=== PATIENT | female | born 1985 | race Caucasian/White ===

== ENCOUNTER 2016-05-18 20:42 | Inpatient (IN) | payer OTHER ==
[~2016-05-18] VITALS: Ht 167.6 cm; Wt 138.8 kg
[~2016-05-18 20:42] MED LIST: BLM PO; CHANTIX1 MG PO; CHILDREN'S ASPI81 M1; CYCLOBENZAPRINE10 M1 PO; FLEXERIL10 MG PO; FLUTICASONE PRO16 GM; IBUPROFEN800 M1 PO; LANTUS SOLOS100 U/ML SC; LEVAQUIN500 MG PO; LEVEMIR 10100 UNITS/ SC; LEVEMIR100 UNIT/1 SC; LEVOTHYROXIN0.075 M1 PO; LEVOTHYROXINE125 MCG PO; MEDROL DOSEPAK1 PAC PO; MOTRIN 600 MG600 MG PO; MOTRIN600 MG PO; NOVOLOG 10300 UNITS/; NOVOLOG100 U/ML SC; NOVOLOG100 UNIT/2 SC; PREDNISONE10 MG PO; TOPROL XL25 MG PO; TYLENOL #31 TAB PO; VENTOLIN HFA18 GM INH; ZITHROMAX250 M2 PO
--- NOTE | 2016-05-18 20:45 | NUR ---
PER PT EVERYONE IN HOUSE SICK STARTED WITH NAUSEA, VOMITING AND DIARRHEA 129 IDDM SUGARS RUNNING HIGH, PT HAS INSULIN PUMP
--- NOTE | 2016-05-18 21:06 | NUR ---
APPRECIATE TRIAGE NOTE. PT TO ROOM 8 VIA WHEELCHAIR. PA ENRIQUETA TO BEDSIDE FOR EVAL.
--- NOTE | 2016-05-18 21:11 | ED GI/GU/ABDOMINAL COMPLAINT ---
History of Present Illness General Chief Complaint: Nausea, Vomiting, Diarrhea Stated Complaint: NVD/ ?HIGH BLOOD SUGAR Source: patient Exam Limitations: no limitations Vital Signs & Intake/Output Vital Signs & Intake/Output Vital Signs Date Time Temp Pulse Resp B/P Pulse O2 O2 Flow FiO2 Ox Delivery Rate 05/19 0217 99.5 107 20 117/53 96 Room Air 05/19 0019 98.8 118 18 112/61 98 Room Air 05/18 204 98.3 103 22 144/79 98 Triage Note: PER PT EVERYONE IN HOUSE SICK STARTED WITH NAUSEA, VOMITING AND DIARRHEA 0130 IDDM SUGARS RUNNING HIGH, PT HAS INSULIN PUMP Triage Nurses Notes Reviewed? yes ? n Is pt currently ? No Onset: Abrupt Duration: hour(s): (1 AM this morning) Timing: multiple episodes today Quality/Severity: cramping, moderate, severe Location: generalized abdomen No Modifying Factors: none HPI: 31-year-old female comes into emergency room with sudden onset nausea vomiting and diarrhea has been going on since 1 AM this morning. Patient reports that she has had multiple episodes of each. Patient feels that she has chills and body aches. People in her house have been sick with similar symptoms. Patient is a type I diabetic and her sugar was 392 at home she reports. Denies any other associated symptoms. Patient has not been able to keep any liquids down. (RICARDO ALEXIS) Allergies Coded Allergies: clopidogrel (From PLAVIX) (Mild, RASH 03/07/16) Penicillins (FAMILIAL ALLERGY HX 03/07/16) atorvastatin (From LIPITOR) (Intermediate, UNKNOWN 05/19/16) muscle pain Uncoded Allergies: MOUTHWASH (Severe, TONGUE SWELLING - AIM MOUTHWASH 03/07/16) Reconcile Medications Aspirin (Children's Aspirin) 81 MG TAB.CHEW 1 TAB PO DAILY HEART HEALTH ( Reported) Ibuprofen 800 MG TABLET 1 TAB PO TID PRN PAIN Insulin Aspart (Novolog) 100 UNIT/ML VIAL DM (Reported) Levothyroxine Sodium 125 MCG TABLET 125 MCG PO DAILY AC THYROID (Reported) Rosuvastatin Calcium (Crestor) 40 MG TABLET 1 TAB PO DAILY HYPERLIPIDEMIA ( Reported) (XENA YUSUF,LACHO Davidson) Past History Travel History Traveled to [place] past 21 day No Medical History Any Pertinent Medical History? 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 No (RICARDO ALEXIS) Review of Systems Review of Systems Constitutional: Reports: no symptoms. EENTM: Reports: no symptoms. Respiratory: Reports: no symptoms. Cardiovascular: Reports: no symptoms. GI: Reports: see HPI. Genitourinary: Reports: no symptoms. Musculoskeletal: Reports: no symptoms. Skin: Reports: no symptoms. Neurological/Psychological: Reports: no symptoms. Hematologic/Endocrine: Reports: no symptoms. Immunologic/Allergic: Reports: no symptoms. All Other Systems: Reviewed and Negative (RICARDO ALEXIS) Physical Exam Physical Exam General Appearance: well developed/nourished, no apparent distress, alert Head: atraumatic, normal appearance Eyes: Bilateral: normal appearance, EOMI. Ears, Nose, Throat, Mouth: hearing grossly normal, moist mucous membrane Neck: normal inspection Respiratory: normal breath sounds, no respiratory distress Cardiovascular: regular rate/rhythm, tachycardia Gastrointestinal: soft, non-tender Back: normal inspection Extremities: normal range of motion Neurologic/Psych: awake, alert, oriented x 3 Skin: intact, normal color Core Measures ACS in differential dx? No Severe Sepsis Present: No Septic Shock Present: No (RICARDO ALEXIS) Progress Differential Diagnosis: appendicitis, biliary colic, bowel obstruction, diverticulitis, kidney stone, ovarian cyst, ovarian torsion, pancreatitis, threatened AB, UTI/pyelo, DKA, gastroenteritis, Plan of Care: Orders Procedure Date/time Status Nothing by Mouth 05/19 B Active TROPONIN LEVEL 05/19 06 Active CBC WITHOUT DIFFERENTIAL 05/19 06 Active BASIC ELECTROLYTES PLUS BUN&CR 05/19 06 Active EKG 05/19 06 Active BASIC METABOLIC PANEL 05/19 0230 Active Add-on Test (ER Only) 05/19 0208 Active Add-on Test (ER Only) 05/19 0207 Active Pathway - chart 05/19 0107 Active House Staff 05/19 106 Active Code Status 05/19 106 Active Patient Data 05/19 004 Active Admit to inpatient 05/19 40 Active EKG 05/20 15 Active Add-on Test (ER Only) 05/19 001 Active VTE Mechanical Prophylaxis 05/19 UNK Active URINE DRUGS OF ABUSE 05/19 2307 Complete Intake & Output 05/18 2302 Active TROPONIN LEVEL 05/19 2147 Complete MAGNESIUM 05/19 2147 Complete URINE 05/18 2109 Complete URINALYSIS 05/18 2109 Complete LIPASE 05/18 2109 Complete LACTIC ACID 05/18 2109 Complete COMPREHENSIVE METABOLIC PANEL 05/18 2109 Complete CBC WITHOUT DIFFERENTIAL 05/18 2109 Complete AMYLASE 05/18 2109 Complete ACETONE 05/18 2109 Complete FingerStick- Glucose 05/18 2046 Active Current Medications Sig/Lauro Start time Last Medication Dose Stop Time Status Admin Aspirin 81 MG DAILY 05/19 1000 AC (Aspirin) Enoxaparin Sodium 40 MG DAILY 05/19 1000 AC (Lovenox) Rosuvastatin Calcium 10 MG DAILY 05/19 1000 AC (Crestor) Levothyroxine Sodium 0.125 MG DAILY AC 05/19 0700 AC (Synthroid) Ondansetron HCl 4 MG Q6P PRN 05/19 0200 AC (Zofran) Acetaminophen 650 MG Q6P PRN 05/19 0115 AC (Tylenol) Insulin Human Regular 100 UNIT Q24H 05/19 0100 AC (Novolin R (Insulin Drip)) Sodium Chloride 100 ML (Normal Saline 0.9%) Laboratory Tests 05/19/16 0235: Sodium Pending, Potassium Pending, Chloride Pending, Carbon Dioxide Pending, Anion Gap Pending, BUN Pending, Creatinine Pending, BUN/Creatinine Ratio Pending , Glucose Pending, Calcium Pending 05/19/16 0010: Lactic Acid Cancelled 05/18/16 2330: CBC w Diff NO MAN DIFF REQ, RBC 4.64, MCV 90.4, MCH 30.9, RDW 15.5 H, MPV 10.6 H, Gran % 88.6 H, Lymphocytes % 8.9 L, Monocytes % 2.1, Eosinophils % 0.3, Basophils % 0.1, Absolute Granulocytes 10.7 H, Absolute Lymphocytes 1.1 L, Absolute Monocytes 0.3, Absolute Eosinophils 0, Absolute Basophils 0, PUBS MCHC 34.1 05/18/16 2308: Urine Opiates Screen < 100.00, Methadone Screen < 40, Barbiturate Screen < 60, Ur Phencyclidine Scrn < 6.00, Amphetamines Screen < 100, U Benzodiazepines Scrn < 85, Urine Cocaine Screen < 50, Urine Cannabis Screen < 5.00, Urine Color YEL, Urine Clarity CLEAR, Urine pH 6.0, Ur Specific [place] 1.025, Urine Protein NEG, Urine Ketones >=80, Urine Nitrite NEG, Urine Bilirubin NEG@ICTO, Urine Urobilinogen 0.2, Ur Leukocyte Esterase NEG, Ur Microscopic EXAM NOT REQUIRED, Urine Hemoglobin NEG, Urine Glucose >=1000 H, Urine Test NEGATIVE 05/18/168: Anion Gap 19 H, Estimated GFR > 60, BUN/Creatinine Ratio 21.1, Glucose 377 H, Lactic Acid 1.2, Calcium 8.5, Magnesium 1.3 L, Total Bilirubin 0.8, AST 17, ALT 29, Alkaline Phosphatase 93, Troponin I < 0.01, Total Protein 6.5, Albumin 3.6, Globulin 2.9, Albumin/Globulin Ratio 1.2, Amylase < 30 L, Lipase 18 L, Acetone Level POSITIVE AT 1:16 DIL Initial ED EKG: none (RICARDO ALEXIS) Departure Departure Disposition: STILL A PATIENT Condition: Stable Clinical Impression Primary Impression: Diabetic ketoacidosis Secondary Impressions: Gastroenteritis Referrals: MADDIE ELAM MD (PCP/Family) Departure Forms: Customer Survey General Discharge Information Admission Note Spoke With: FRANCHESCA MACK MD Documentation of Exam: Documentation of any treatments & extenuating circumstances including Concerns Regarding Discharge (functional status, medication knowledge or non-compliance, living conditions, etc.) that warrant an admission rather than observation: Patient will require IV fluids. IV insulin. Endocrine consultation. Critical care management. Repeat blood work. High risk. Patient has declined ABG and any type of central line access at this point. (RICARDO ALEXIS) PA/PELTS SKINNER Co-Sign Statement Statement: ED Attending supervision documentation- [x] I saw and evaluated the patient. I have also reviewed all the pertinent lab results and diagnostic results. I agree with the findings and the plan of care as documented in the PA's/PELTS SKINNER's documentation. pt signed out to me... discussed with hospitalist... pt with mild dka, merits insulin gtt, pt to be admitted to icu. [] I have reviewed the ED Record and agree with the PA's/PELTS SKINNER's documentation. [] Additions or exceptions (if any) to the PAs/PELTS SKINNER's note and plan are summarized below: [] (XENA YUSUF,LACHO Davidson) Critical Care Note Critical Care Note Critical Care Time: 30-74 min (ENRIQUETA RASHID,RICARDO)
--- NOTE | 2016-05-18 22:51 | NUR ---
MULTIPLE ATTEMPTS BY MULTIPLE RN'S FOR IV ACCESS. ONE SST TUBE SENT. GAY ROBISON AND DR. HARDY UPDATED ON PT STATUS.
--- NOTE | 2016-05-18 23:02 | NUR ---
PT MEDICATED WITH ODT ZOFRAN AT THIS TIME PER GAY ROBISON. PT AMBULATORY TO BATHROOM TO PROVIDE URINE SPECIMEN WITH NO DIFFICULTY. PT PROVIDED WITH TWO WATER PITCHERS TO HYDRATE PO AT THIS TIME.
[2016-05-18 23:37] LABS: ABSOLUTE BASOPHIL COUNT 0 /CUMM (0.0-0.2); ABSOLUTE EOSINOPHIL COUNT 0 /CUMM (0.0-0.7); ABSOLUTE GRANULOCYTE CT 10.7 /CUMM (1.4-6.5); ABSOLUTE LYMPH COUNT 1.1 /CUMM (1.2-3.4); ABSOLUTE MONOCYTE COUNT 0.3 /CUMM (0.10-0.60); BASOPHIL % 0.1 % (0.0-2.0); EOSINOPHIL % 0.3 % (0-5); HEMATOCRIT 41.9 % (37-47); MEAN CORPUSCULAR HGB 30.9 PG (27.0-31.0); MEAN CORPUSCULAR HGB CONC 34.1 G/DL (33.0-37.0); MEAN CORPUSCULAR VOLUME 90.4 FL (81.0-99.0); MEAN PLATELET VOLUME 10.6 FL (7.4-10.4); PLATELET COUNT 221 /CUMM (130-400); RBC DISTRIBUTION WIDTH 15.5 % (11.5-14.5); RED BLOOD CELL CT 4.64 /CUMM (4.20-5.40); WHITE BLOOD CELL COUNT 12.1 /CUMM (4.8-10.8)
--- NOTE | 2016-05-18 23:40 | NUR ---
IV EST BY THIS RN #24 LEFT WRIST. LACTIC AND LAV TOPS OBTAINED AND SENT TO LAB.
--- NOTE | 2016-05-18 23:40 | NUR ---
IV EST #24 LEFT WRIST. LACTIC AND LAV TOPS OBTAINED AND SENT TO LAB.
[2016-05-18 23:50] LABS: GRANULOCYTE % 88.6 % (42.2-75.2)
--- NOTE | 2016-05-18 23:53 | NUR ---
CURRENT FINGERSTICK 295. RICARDO RASHID AWARE.
--- NOTE | 2016-05-19 00:12 | NUR ---
PATIENT DECLINING ABG PER GAY SILVA DESPITE THOROUGH DISCUSSION OF RISKS/ BENEFITS.
--- NOTE | 2016-05-19 00:20 | NUR ---
WEIGHT ON STANDING SCALE IS 306LBS.
--- NOTE | 2016-05-19 00:28 | NUR ---
HOUSE STAFF AT BEDSIDE FOR EVAL.
--- NOTE | 2016-05-19 00:36 | NUR ---
EKG IN PROGRESS.
--- NOTE | 2016-05-19 00:50 | NUR ---
PATIENT'S INSULIN PUMP DISCONNECTED AT THIS TIME AND PLACED W/ PATIENT'S BELONGINGS. PATIENT AWARE TO KEEP INSULIN PUMP OFF AND DISCONNECTED WHILE IN HOSPITAL.
[2016-05-19] MEDS ORDERED: CRESTOR40 M2 PO (01:23)
--- NOTE | 2016-05-19 01:35 | NUR ---
PER HOUSE STAFF JUVENCIO (BEEPER 203) THE MD STOPPED HER POTASSIUM D/T PATIENT DISCOMFORT, PER MD "DON'T NEED TO RESTART IT BECAUSE SHE RECIEVED PO POTASSIUM TOO."
--- NOTE | 2016-05-19 02:00 | NUR ---
NS FIRST LITER COMPLETE. SECOND LITER NS INITIATED AT THIS TIME, INFUSING W/O DIFFICULTY.
--- NOTE | 2016-05-19 02:23 | NUR ---
FINGERSTICK GLUCOSE LEVEL READING 109
--- NOTE | 2016-05-19 02:30 | History & Physical ---
LOBO ALVAREZ MD 05/19/16 0147: General Information and HPI MD Statement: I have seen and personally examined JAZMYN EDWARDS and documented this H&P. The patient is a 31 year old F who presented with a patient stated chief complaint of nausea, vomiting, diarrhea. Source of Information: patient, family, old records Exam Limitations: no limitations History of Present Illness: 31 year old woman with significant past medical history of IDDM on insulin pump, Myocardial Infarction (2011) s/p stent (type unknown), and hypothyroidism seen for evaluation of nausea, vomiting diarrhea. Patient reports that all of the members of her household have been ill with similar gastrointestinal symptoms. She admits to having diarrhea for roughly two weeks characterized as loose, brown, nonbloody bowel movements 7+ times per day. Over the past 24 hours she reports associated nausea with nonbloody, bilious vomitting. Additionally she admits to decreased oral intake, chills, dizzyness, palpitations, shortness of breath, and worsening numbness/tingling of her hands. Additionally she denies any blurred/double vision, lightheadedness, chest pain, cough, urinary frequency/urgency/burning/pain. Allergies/Medications Allergies: Coded Allergies: clopidogrel (From PLAVIX) (Mild, RASH 03/07/16) Penicillins (FAMILIAL ALLERGY HX 03/07/16) atorvastatin (From LIPITOR) (Intermediate, UNKNOWN 05/19/16) muscle pain Uncoded Allergies: MOUTHWASH (Severe, TONGUE SWELLING - AIM MOUTHWASH 03/07/16) Home Med list Aspirin (Children's Aspirin) 81 MG TAB.CHEW ANTI PLATELET (Reported) Ibuprofen 800 MG TABLET 1 TAB PO TID PRN PAIN Insulin Aspart (Novolog) 100 UNIT/ML VIAL DM (Reported) Levothyroxine Sodium 125 MCG TABLET 125 MCG PO DAILY AC THYROID (Reported) Rosuvastatin Calcium (Crestor) 40 MG TABLET 1 TAB PO DAILY HYPERLIPIDEMIA ( Reported) Past History Travel History Traveled to [place] past 21 day No Medical History Neurological: NONE EENT: NONE Cardiovascular: myocardial infarction (w/ stent), STENT PLACED MAR 2011 Respiratory: NONE Gastrointestinal: NONE Hepatic: NONE Renal: NONE Musculoskeletal: NONE Psychiatric: NONE Endocrine: diabetes, hypothyroidism Blood Disorders: NONE Cancer(s): 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 Home Who Do You Live With? spouse, child Primary Language: Syriac Smoking Status: Former Smoker ETOH Use: occasional use Illicit Drug Use: denies illicit drug use Review of Systems Review of Systems Constitutional: Reports: see HPI. Exam & Diagnostic Data Last 24 Hrs of Vital Signs/I&O Vital Signs Date Time Temp Pulse Resp B/P Pulse O2 O2 Flow FiO2 Ox Delivery Rate 05/19 001 98.8 118 18 112/61 98 Room Air 05/18 2045 98.3 103 22 144/79 98 Intake & Output 05/19 0800 05/19 0000 05/18 1600 Intake Total Output Total Balance Patient 138.799 kg Weight Physical Exam General Appearance Alert, Oriented X3, Cooperative, No Acute Distress Skin No Rashes, No Breakdown, No Significant Lesion HEENT Atraumatic, PERRLA, EOMI, Mucous Membr. moist/pink Neck Supple Cardiovascular Regular Rate, Normal S1, Normal S2, No Murmurs Lungs Clear to Auscultation, Normal Air Movement Abdomen Normal Bowel Sounds, Soft, No Hepatospenomegaly, No Masses, Mild diffuse abdominal tenderness Neurological Normal Speech, Normal Tone, Cranial Nerves 3-12 NL Extremities No Clubbing, No Cyanosis, Normal Pulses, No Tenderness/Swelling, 1+ bilateral lower extremity edema Vascular Normal Pulses, Pulses Symmetrical Last 24 Hrs of Labs/Bryan: Laboratory Tests 05/19/16 0010: Lactic Acid Cancelled 05/18/16 2330: CBC w Diff NO MAN DIFF REQ, RBC 4.64, MCV 90.4, MCH 30.9, RDW 15.5 H, MPV 10.6 H, Gran % 88.6 H, Lymphocytes % 8.9 L, Monocytes % 2.1, Eosinophils % 0.3, Basophils % 0.1, Absolute Granulocytes 10.7 H, Absolute Lymphocytes 1.1 L, Absolute Monocytes 0.3, Absolute Eosinophils 0, Absolute Basophils 0, PUBS MCHC 34.1 05/18/16 2308: Urine Color YEL, Urine Clarity CLEAR, Urine pH 6.0, Ur Specific [place] 1.025, Urine Protein NEG, Urine Ketones >=80, Urine Nitrite NEG, Urine Bilirubin NEG@ ICTO, Urine Urobilinogen 0.2, Ur Leukocyte Esterase NEG, Ur Microscopic EXAM NOT REQUIRED, Urine Hemoglobin NEG, Urine Glucose >=1000 H, Urine Test NEGATIVE 05/18/168: Anion Gap 19 H, Estimated GFR > 60, BUN/Creatinine Ratio 21.1, Glucose 377 H, Lactic Acid 1.2, Calcium 8.5, Magnesium 1.3 L, Total Bilirubin 0.8, AST 17, ALT 29, Alkaline Phosphatase 93, Total Protein 6.5, Albumin 3.6, Globulin 2.9, Albumin/Globulin Ratio 1.2, Amylase < 30 L, Lipase 18 L, Acetone Level POSITIVE AT 1:16 DIL Diagnostic Data EKG Results Sinus Tachycardia HR 118 MN 152 QTc 432 New T-Wave inversion V1-V6 + III No ST segment changes Assessment/Plan Assessment: 31 year old woman with multiple medical problems significant for insulin dependent diabetes mellitus and myocardial infarction seen for evaluation of nausea, vomiting, and diarrhea. Given patients reported history of multiple family members having similar gastrointestinal complaints and negative history for any recent travel, consumption of undercooked meat, or recent antibiotic use it is likely patient is suffering from an acute viral gastroenteritis. Patient objectively also qualifies for diabetic ketoacidosis most likely secondary to her acute viral illness with her decreased oral intake, dehydration, elevated blood sugar, low bicarbonate, and positive acetone. Patient declining ABG at this time. Patient will be admitted to the intensive care unit for further evaluation. Diabetic Ketoacidosis / IDDM on Insulin Pump Extensive history of insulin dependent diabetes mellitus. Uses insulin pump at home and reports compliance. Patient of Dr. Chiu (data conversion operator) of [place]. Most likely secondary to her acute viral illness. Patient received 1 liter normal saline and 10 units regular insulin in ED. -ICU admission -BEP Q4H -Fingersticks Q1H -D5 Normal Saline with KCL -F/U BEP, assess for closer of anion gap and normalization of potassium / bicarbonate, place endocrine consult if these results are still abnormal Viral Gastroenteritis -Intravenous Fluid rehydration -Zofran 4mg IV Q6H PRN - Nausea History of Myocardial Infarction s/p Stent Patient of Dr. Coe. Reportedly had ME in 2011 resulting in placement of a reported bare-metal stent. Reported allergy to plavix and lipitor. EKG demonstrated new t-wave inversions in precordial leads on admission. -Aspirin 81mg PO Daily -Crestor 40mg PO Daily -Trend Troponin/EKG Hypothyroidism - levothyroxine 125mg PO Daily Diet - NPO, advance to clears as tolerated DVT PPx - heparin Code Status - Full Code As Ranked By This Provider Problem List: 1. Diabetic ketoacidosis 2. Gastroenteritis Core Measures/Miscellaneous Acute Coronary Syndrome ACS Diagnosis: No Cerebrovascular Accident CVA/TIA Diagnosis: No Congestive Heart Failure CHF Diagnosis: No Venous Thromboembolism VTE Risk Factors: Acute medical illness, Obesity VTE Prophylaxis Ordered Inpt: Pharm- Heparin No Mech VTE prophylaxis d/t: No contraindications No VTE Pharm Prophylaxis d/t: No contraindications VTE Diagnosis: No VTE Type: NONE VTE Confirmed by (Test): NONE Severe Sepsis Severe Sepsis Present: No Septic Shock Septic Shock Present: No Miscellaneous Documentation Attending Case Discussed With: FRANCHESCA MACK MD Primary Care Physician: MADDIE ELAM MD Patient sees these Specialists Dr. Saravanan Chiu Level of Patient Care: Critical Care (CRI) Consults Needed: Consulting Specialty: Endocrinology JUVENCIO FRANCO 05/19/16 0242: Resident Review Statement Resident Statement: examined this patient, discussed with consultant intern, amended to note Other Findings: 31-year-old lady with past medical history of ME in 2011 with bare metal stent on aspirin 81 mg, diabetes type 1 on insulin pump since 1-1/2 months ago, hypothyroidism on levothyroxine came with chief complaint of nausea and vomiting , diarrhea and weakness. Patient reported having nonbloody, watery, brown diarrhea for at least 10 days, associated with on and off chills. However patient reported having nausea and multiple episodes of nonbloody vomiting for 24 hours with shortness of breath on exertion, generalized weakness which prompted her to come to the hospital. Patient reports her kids, her mother and her had episode of gastroenteritis recently, denies any chest pain, headache, urinary symptoms, tenesmus. Patient does report of chronic back pain, carpal tunnel syndromes and tingling and numbness on the hands. Patient has started using insulin pump for about 6 X. According to the patient her blood sugar levels were within normal limits except today which were very high. Vital signs on admission temperature 98.8, pulse is 118, RR 18, O2 saturation 98 % on room air Alert and oriented 3 Skin No Rashes, No Breakdown, No Significant Lesion HEENT Atraumatic, PERRLA, EOMI Neck Supple, No JVD, No thryomegaly Lymphatic Cervical nl Cardiovascular tachycardic, Normal S1, Normal S2 Lungs Clear to Auscultation, Normal Air Movement Abdomen Normal Bowel Sounds, Soft, mild generalizedTenderness, No Hepatospenomegaly, No Masses Neurological Normal Gait, Normal Speech, Strength at 5/5 X4 Ext, Sensation Intact Extremities No Clubbing, No Cyanosis, Potassium 3.3, sodium 137, glucose 377, BUN 19, AG 19,HCO3 13 Urine is positive for ketones EKG showed sinus tachycardia, 118, QTC 433, T-segment depression in V3, V4, V5, V6 comparing to previous EKG Assessment and plan #Mild DKA(due to gastroenteritist ) -Patien received 1 L bolus and was signing the ED. Continue with 3 L of post # in the ED -Patient received 10 units of Regular Insulin in the ED, We will check blood sugars hourly -BEP every 4 hours until the anion gap closed and HCO3 is more than 19 -we can put the patinet on D5 half when glucose is less than 250 -Repeat K orally and intravenously -admit to ICU -Patient previous regimen was 14 units of Levemir in the morning and 26 units of levmir at night with NovoLog for meals -Early Childhood Coordinator consult (for morning) -Zofran for nausea #EKG changes/ Hx of ME with stents -Troponin and EKG 2 -No need for echocardiogram for now -continue aspirin,statin (crestor 40 mg) #Hypothyroidisim -Continue levothyroxine Full code, Tylenol for pain, NPO DVT prophylaxis is mechanical and Lovenox for now, FRANCHESCA MACK 05/19/16 0604: Attending MD Review Statement Attending Statement Attending MD Statement: examined this patient, discuss w/resident/PA/GYNAECOLOGICAL ONCOLOGIST, agreed w/resident/PA/GYNAECOLOGICAL ONCOLOGIST, discussed with family, reviewed EMR data (avail), reviewed images, amended to note Attending Assessment/Plan: CC: Diarrhea, vomiting PMH: Type 1 diabetes, hypothyroidism, ME 2011 S/P stent Patient came with recurrent vomiting this today, said 20 times, bilious intermittently, no blood. Not associated with severe abdominal pain. She also has diarrhea going on since a week or so, many times, watery, nonbloody. Patient 's whole family is going through similar symptoms, they have been eating out more lately according to her . Her children also go to daycare, and they started to have the symptoms first. She has some soreness on her abdomen after persistent vomiting. No chest pain, tachycardia, palpitations, LOC, dizziness. She was recently started on insulin pump one month back, and sugar control have been better, HbA1c improving according to her. Before insulin pump patient was using almost 70 units of long-acting insulin along with sliding scale short- acting. Vitals: T max 99.6, tachycardic, RR, BP, O2 saturation within acceptable range. On examination obese, a O 3, anxious, no acute distress, mucosa dry, neck supple, no lymphadenopathy, no focal neurological deficit, no pedal edema, no JVD CVS: S1-S2, RRR. RS: Clear to auscultate bilaterally. Abdomen: Soft, NT ND, bowel sounds present. Labs: WBC 12.1, granulocytes 88%, on an 19 with metabolic acidosis. A and P #1 DKA : Precipitated by gastroenteritis, probably viral in origin with reactive leukocytosis, no fever. I was called admission for ICU. The last lab was over 2 hours prior to call, patient had received normal saline 1 L and 10 unit regular IV insulin, her blood sugars were dropping to 200s. Insulin drip was not started in ER. The second problem was she had only one IV line and difficult stick according to ER nurses. So repeat labs were ordered at 2 AM, to reevaluate, which were done at 5 AM (because of difficult prick , hemolysis , patient refused) and gap was 10, even without insulin drip. Patient on insulin pump, suggested 10 unit Levemir and sliding scale insulin, clear liquid diet, repeat BMP in 4 hour. As of now her blood sugar was 132, but gradually creeping up to 170. She is on hourly finger sticks. She will be downgraded to general med now, and will be started on basal and bolus insulin, insulin pump is off, patient did not have any vomiting this in ER, still little dehydrated, continue normal saline maintenance. Consult endocrinology. She has T-wave inversions in lateral leads, but troponin negative so far, no chest pain.
--- NOTE | 2016-05-19 02:36 | NUR ---
VERY SMALL AMOUNT OBTAINED IN SST FOR REPEAT LABS. PATIENT CONTINUES TO REFUSE ANY ADDITIONAL STICKS FOR BLOODWORK/ SECOND IV. HOUSE STAFF AWARE. HOUSE STAFF (BEEPER 203) AWARE OF PATIENT FINGERSTICK OF 109 (INSULIN DRIP WAS NEVER INITIATED).
--- NOTE | 2016-05-19 03:01 | NUR ---
BLOODWORK HEMOLYZED AND NEEDS TO BE REDRAWN.
--- NOTE | 2016-05-19 03:41 | NUR ---
PHARMACY AWARE OF MAG OX ORDER.
--- NOTE | 2016-05-19 03:46 | NUR ---
FINGERSTICK GLUCOSE LEVEL READING 132
--- NOTE | 2016-05-19 04:10 | NUR ---
AT BEDSIDE (BEEPER 203) DISCUSSING BLOODWORK/ IV, PATIENT INITIALLY REFUSING ANY ADDITIONAL IV/BLOODDRAWS. 0235 LABS OBTAINED AND HEMOLYZED, REQUIRE REDRAW. DISCUSSING W/ PATIENT. PATIENT NOW AGREEABLE TO ATTEMPTS TO SECOND IV/ BLOODWORK, REQUESTING ALL LABS BE DONE FROM IV.
--- NOTE | 2016-05-19 04:39 | NUR ---
SMALL AMOUNT OBTAINED AND SENT TO LAB IN [facility].
--- NOTE | 2016-05-19 04:44 | NUR ---
IV EST #22 RIGHT HAND BY FREDERIC BENDER.
[2016-05-19 05:08] LABS: ABSOLUTE BASOPHIL COUNT 0 /CUMM (0.0-0.2); ABSOLUTE EOSINOPHIL COUNT 0 /CUMM (0.0-0.7); ABSOLUTE LYMPH COUNT 1.4 /CUMM (1.2-3.4)
[2016-05-19 05:12] LABS: ABSOLUTE GRANULOCYTE CT 7.3 /CUMM (1.4-6.5); ABSOLUTE MONOCYTE COUNT 0.5 /CUMM (0.10-0.60); BASOPHIL % 0.1 % (0.0-2.0); EOSINOPHIL % 0.1 % (0-5); GRANULOCYTE % 79.6 % (42.2-75.2); HEMATOCRIT 38.4 % (37-47); MEAN CORPUSCULAR HGB 30.8 PG (27.0-31.0); MEAN CORPUSCULAR HGB CONC 33.8 G/DL (33.0-37.0); RBC DISTRIBUTION WIDTH 15.3 % (11.5-14.5); RED BLOOD CELL CT 4.22 /CUMM (4.20-5.40); WHITE BLOOD CELL COUNT 9.1 /CUMM (4.8-10.8)
--- NOTE | 2016-05-19 05:53 | NUR ---
PER HOUSE STAFF (BEEPER 203) PATIENT DOWNGRADED TO GM FROM ICU D/T GAP CLOSED IN AM BLOODWORK RESULTS.
--- NOTE | 2016-05-19 06:05 | Admission Certification ---
Admission Certification Certification Statement - As attending physician, I certify that at the time of - admission, based on clinical presentation, severity of - symptoms, need for further diagnostic testing and - therapeutic interventions, and risk of adverse outcomes - without in-hospital treatment, in my clinical assessment, - this patient requires an acute hospital stay for a minimum - of two nights or longer. I have also considered psychsocial - factors such as support system, advanced age, financial - issues, cognitive issues, and failed out-patient treatments, - past re-admission history, safety of patient, and lack of - compliance as applicable. Specific rationale supporting this admission is: DKA with gastroenteritis
--- NOTE | 2016-05-19 06:06 | NUR ---
PHARMACY AWARE OF MED ORDERS.
--- NOTE | 2016-05-19 06:20 | NUR ---
CURRENT FINGERSTICK 288. MEDICATED W/ SYNTHROID PER EMAR. TOLERATED WELL.
--- NOTE | 2016-05-19 06:29 | NUR ---
PATIENT MEDICATED W/ 15 UNITS LEVEMIR PER EMAR. TOLERATED WELL.
--- NOTE | 2016-05-19 06:47 | NUR ---
PATIENT MEDICATED W/ MAG OX PER EMAR. TOLERATED WELL. CONFIRMED FREQUENCY W/ PHARMACY.
--- NOTE | 2016-05-19 06:55 | PN- Housestaff ---
Subjective Follow-up For: nausea and vomiting elevated BS, DKA Subjective: I saw and examined the patient in the ED today in the morning, she is alert and oriented in no distress, denies any N/V, abdominal pain, dizziness or headache. Review of Systems Constitutional: Denies: chills, fever. EENTM: Reports: no symptoms. Cardiovascular: Denies: chest pain, palpitations. Respiratory: Denies: cough, short of breath. Gastrointestinal: Denies: abdominal pain, nausea, vomiting. Genitourinary: Reports: no symptoms. Musculoskeletal: Reports: no symptoms. Skin: Reports: no symptoms. Neurological/Psychological: Denies: headache, weakness. Hematologic/Endocrine: Reports: polyuria, polydipsia. Objective Last 24 Hrs of Vital Signs/I&O Vital Signs Date Time Temp Pulse Resp B/P Pulse O2 O2 Flow FiO2 Ox Delivery Rate 05/19 0950 97.8 105 18 116/55 98 05/19 0439 99.1 118 18 95 Room Air 05/19 0344 99.6 115 20 103/52 93 Room Air 05/19 0217 99.5 107 20 117/53 96 Room Air 05/19 0019 98.8 118 18 112/61 98 Room Air 05/18 2046 98.3 103 22 144/79 98 Intake & Output 05/19 1600 05/19 0800 05/19 0000 Intake Total 1000 Output Total Balance 1000 Intake, IV 1000 Patient 138.799 kg Weight Physical Exam General Appearance: Alert, Oriented X3, Cooperative, No Acute Distress Skin: No Rashes, No Breakdown, No Significant Lesion HEENT: Atraumatic, EOMI Neck: Supple Cardiovascular: Regular Rate, Normal S1, Normal S2, No Murmurs Lungs: Clear to Auscultation, Normal Air Movement Abdomen: Soft, No Tenderness Neurological: Normal Speech, Strength at 5/5 X4 Ext, Normal Tone, Sensation Intact Extremities: No Edema, Normal Pulses Vascular: Pulses Symmetrical Current Medications: Current Medications Sig/Lauro Start time Last Medication Dose Route Stop Time Status Admin Acetaminophen 650 MG Q6P PRN 05/19 0115 AC PO Aspirin 81 MG DAILY 05/19 1000 AC PO Dextrose/Sodium 1,000 ML Q8H 05/19 0415 DC Chloride IV Enoxaparin Sodium 40 MG DAILY 05/19 1000 AC SC Insulin Aspart 0 TIDAC 05/19 0800 AC 05/19 SC 0737 Insulin Detemir 25 UNITS BID 05/19 2200 AC SC Insulin Detemir 10 UNITS ONCE ONE 05/19 0900 DC 05/19 SC 05/19 0901 0916 Insulin Detemir 15 UNITS ONCE ONE 05/19 0600 DC 05/19 SC 05/19 0601 0629 Insulin Human Regular 100 UNIT Q24H 05/19 0100 DC Sodium Chloride 100 ML IV Insulin Human Regular 100 UNIT ONCE ONE 05/19 0030 DC Sodium Chloride 100 ML IV 05/23 0429 Insulin Human Regular 10 UNITS ONCE ONE 05/19 0015 DC 05/19 IV 05/19 0016 0054 Levothyroxine Sodium 0.125 MG DAILY AC 05/19 0700 AC 05/19 PO 0621 Magnesium Oxide 400 MG ONE ONE 05/19 0630 DC 05/19 PO 05/19 0631 0647 Magnesium Oxide 400 MG ONE ONE 05/19 0215 DC 05/19 PO 05/19 0216 0430 Ondansetron HCl 4 MG Q6P PRN 05/19 0200 AC IV Ondansetron HCl 4 MG ONCE ONE 05/18 2315 DC 05/18 PO 05/18 2316 2317 Ondansetron HCl 0 .STK-MED ONE 05/18 2301 DC PO Ondansetron HCl 4 MG ONCE ONE 05/18 2115 DC IV 05/18 2116 Potassium Chloride 40 MEQ ONCE ONE 05/19 0600 CAN PO 05/19 0601 Potassium Chloride 20 MEQ Q8H 05/19 0600 AC 05/19 Sodium Chloride 1,000 ML IV 1022 Potassium Chloride 0 .STK-MED ONE 05/19 0046 DC PO Potassium Chloride 40 MEQ ONCE ONE 05/19 0015 DC 05/19 PO 05/19 0016 0046 Potassium Chloride 10 MEQ ONCE ONE 05/19 0015 DC 05/19 IV 05/19 0016 0103 Rosuvastatin Calcium 10 MG DAILY 05/19 1000 AC PO Sodium Chloride 1,000 ML Q6H 05/19 0515 DC IV Sodium Chloride 1,000 ML BOLUS ONE 05/18 2345 DC 05/19 IV / 0044 0200 Sodium Chloride 1,000 ML BOLUS ONE 05/18 2345 DC IV / 0044 Sodium Chloride 1,000 ML BOLUS ONE 05/18 2115 DC 05/18 IV 05/18 2214 2346 Last 24 Hrs of Lab/Bryan Results Last 24 Hrs of Labs/Mics: Laboratory Tests 05/19/16 0834: Anion Gap 12, Estimated GFR > 60, BUN/Creatinine Ratio 22.5 05/19/16 0445: Sodium Cancelled, Potassium Cancelled, Chloride Cancelled, Carbon Dioxide Cancelled, Anion Gap Cancelled, BUN Cancelled, Creatinine Cancelled, BUN/ Creatinine Ratio Cancelled, Troponin I Cancelled, CBC w Diff NO MAN DIFF REQ, RBC 4.22, MCV 91.0, MCH 30.8, RDW 15.3 H, Gran % 79.6 H, Lymphocytes % 14.9 L , Monocytes % 5.3, Eosinophils % 0.1, Basophils % 0.1, Absolute Granulocytes 7.3 H, Absolute Lymphocytes 1.4, Absolute Monocytes 0.5, Absolute Eosinophils 0, Absolute Basophils 0, PUBS MCHC 33.8 05/19/16 0427: Anion Gap 10, Estimated GFR > 60, BUN/Creatinine Ratio 22.5, Glucose 145 H, Calcium 7.9 L, Magnesium 1.3 L, Troponin I < 0.01 05/19/16 0010: Lactic Acid Cancelled 05/18/16 2330: CBC w Diff NO MAN DIFF REQ, RBC 4.64, MCV 90.4, MCH 30.9, RDW 15.5 H, MPV 10.6 H, Gran % 88.6 H, Lymphocytes % 8.9 L, Monocytes % 2.1, Eosinophils % 0.3, Basophils % 0.1, Absolute Granulocytes 10.7 H, Absolute Lymphocytes 1.1 L, Absolute Monocytes 0.3, Absolute Eosinophils 0, Absolute Basophils 0, PUBS MCHC 34.1 05/18/16 2308: Urine Opiates Screen < 100.00, Methadone Screen < 40, Barbiturate Screen < 60, Ur Phencyclidine Scrn < 6.00, Amphetamines Screen < 100, U Benzodiazepines Scrn < 85, Urine Cocaine Screen < 50, Urine Cannabis Screen < 5.00, Urine Color YEL, Urine Clarity CLEAR, Urine pH 6.0, Ur Specific [place] 1.025, Urine Protein NEG, Urine Ketones >=80, Urine Nitrite NEG, Urine Bilirubin NEG@ICTO, Urine Urobilinogen 0.2, Ur Leukocyte Esterase NEG, Ur Microscopic EXAM NOT REQUIRED, Urine Hemoglobin NEG, Urine Glucose >=1000 H, Urine Test NEGATIVE 05/18/16 2148: Anion Gap 19 H, Estimated GFR > 60, BUN/Creatinine Ratio 21.1, Glucose 377 H, Lactic Acid 1.2, Calcium 8.5, Magnesium 1.3 L, Total Bilirubin 0.8, AST 17, ALT 29, Alkaline Phosphatase 93, Troponin I < 0.01, Total Protein 6.5, Albumin 3.6, Globulin 2.9, Albumin/Globulin Ratio 1.2, Amylase < 30 L, Lipase 18 L, Acetone Level POSITIVE AT 1:16 DIL Assessment/Plan Assessment: 31 year old woman with multiple medical problems significant for insulin dependent diabetes mellitus and myocardial infarction seen for evaluation of nausea, vomiting, and diarrhea. Given patients reported history of multiple family members having similar gastrointestinal complaints and negative history for any recent travel, consumption of undercooked meat, or recent antibiotic use it is likely patient is suffering from an acute viral gastroenteritis. Patient objectively also qualifies for diabetic ketoacidosis most likely secondary to her acute viral illness with her decreased oral intake, dehydration, elevated blood sugar, low bicarbonate, and positive acetone. Patient declining ABG at this time. Patient will be admitted to the intensive care unit for further evaluation. Diabetic Ketoacidosis - resolved Extensive history of insulin dependent diabetes mellitus. Uses insulin pump at home and reports compliance. 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 Most likely secondary to her acute viral illness. -started on Insulin levemir and sliding scale -continued Normal Saline with KCL -followed endo recommendations -recheck BEP in AM Viral Gastroenteritis -Intravenous Fluid rehydration -Zofran 4mg IV Q6H PRN - Nausea History of Myocardial Infarction s/p Stent Patient of Dr. Coe. Reportedly had UT in 2011 resulting in placement of a reported bare-metal stent. Reported allergy to plavix and lipitor. EKG demonstrated new t-wave inversions in precordial leads on admission. -Aspirin 81mg PO Daily -Crestor 40mg PO Daily - Troponin (-)x2 /EKG Hypothyroidism - levothyroxine 125mg PO Daily Diet - NPO, advance to clears as tolerated DVT PPx - heparin Code Status - Full Code Problem List: 1. Gastroenteritis 2. Diabetic ketoacidosis Pain Ratin Pain Location: no pain Pain Goal: Pain 4 or less Pain Plan: tylenol Tomorrow's Labs & Rationales: BEP (DKA) Consulting Request: Consulting Specialty: Endocrinology Consulting Request: Consulting Specialty: Endocrinology
--- NOTE | 2016-05-19 07:21 | NUR ---
DR MASON AT BEDSIDE.
--- NOTE | 2016-05-19 07:38 | NUR ---
FINGERSTICK 356 - COVERED WITH 6 UNITS INSULIN (SEE MAR) BREAKFAST TRAY PROVIDED.
--- NOTE | 2016-05-19 07:43 | Cons- Endocrinology ---
General Information and HPI Consulting Request Date of Consult: 05/19/16 Requested By: medical team Reason for Consult: Diabetic ketoacidosis Source of Information: patient, old records Exam Limitations: no limitations History of Present Illness: This 31-year-old woman developed nausea and vomiting. She states that everybody at home was sick with a gastrointestinal virus. She did take off her insulin pump for a few hours because she was afraid it would fall in the toilet when she was vomiting. The patient has a known history of diabetes type 1 since age 1. Over the past 2 months she has been on an insulin pump. She states that the pump has helped her bring down her hemoglobin A1c. Her basal rate is in the 2.15 to 2.3 units per hour range. The insulin to carbohydrate ratio is 1/12 and her insulin sensitivity is 1/30 points. Therefore she has large insulin requirements. The patient has been overweight for quite some time. The patient received IV fluids during the night and some subcutaneous insulin. She was never placed on an insulin drip but her ketoacidosis has cleared. Allergies/Medications Allergies: Coded Allergies: clopidogrel (From PLAVIX) (Mild, RASH 03/07/16) Penicillins (FAMILIAL ALLERGY HX 03/07/16) atorvastatin (From LIPITOR) (Intermediate, UNKNOWN 05/19/16) muscle pain Uncoded Allergies: MOUTHWASH (Severe, TONGUE SWELLING - AIM MOUTHWASH 03/07/16) Home Med List: Aspirin (Children's Aspirin) 81 MG TAB.CHEW ANTI PLATELET (Reported) Ibuprofen 800 MG TABLET 1 TAB PO TID PRN PAIN Insulin Aspart (Novolog) 100 UNIT/ML VIAL DM (Reported) Levothyroxine Sodium 125 MCG TABLET 125 MCG PO DAILY AC THYROID (Reported) Rosuvastatin Calcium (Crestor) 40 MG TABLET 1 TAB PO DAILY HYPERLIPIDEMIA ( Reported) Review of Systems Review of Systems Constitutional: Denies: chills, fever. Cardiovascular: Denies: chest pain. Respiratory: Denies: short of breath. GI: Reports: nausea, vomiting. Genitourinary: Denies: dysuria. Skin: Reports: no symptoms. 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 Home Who Do You Live With? spouse, child Primary Language: Swedish Smoking Status: Former Smoker ETOH Use: occasional use Illicit Drug Use: denies illicit drug use Exam & Diagnostic Data Last 24 Hrs of Vital Signs/I&O Vital Signs Date Time Temp Pulse Resp B/P Pulse O2 O2 Flow FiO2 Ox Delivery Rate 05/19 0439 99.1 118 18 95 Room Air 03 0344 99.6 115 20 103/52 93 Room Air 03/ 0217 99.5 107 20 117/53 96 Room Air / 0019 98.8 118 18 112/61 98 Room Air 05/18 204 98.3 103 22 144/79 98 Intake & Output 05/19 0800 05/19 0000 03 1600 Intake Total 1000 Output Total Balance 1000 Intake, IV 1000 Patient 306 lb Weight Vital Signs Date Time Temp Pulse Resp B/P Pulse O2 O2 Flow FiO2 Ox Delivery Rate 05/19 0439 99.1 118 18 95 Room Air 05/19 0344 99.6 115 20 103/52 93 Room Air / 0217 99.5 107 20 117/53 96 Room Air 05/19 0019 98.8 118 18 112/61 98 Room Air 05/18 204 98.3 103 22 144/79 98 Intake & Output 05/19 0800 / 0000 03/01 1600 Intake Total 1000 Output Total Balance 1000 Intake, IV 1000 Patient 306 lb Weight Physical Exam General Appearance: alert, awake, comfortable Head: normal appearance Eyes: Bilateral: normal appearance. Neck: normal inspection Respiratory: normal breath sounds Cardiovascular: regular rate/rhythm Gastrointestinal: normal bowel sounds, soft, non-tender Extremities: normal inspection Labs/Bryan Results: Laboratory Tests 05/19 05/19 05/19 0445 0427 0010 Chemistry Sodium (137 - 145 mmol/L) Cancelled 137 Potassium (3.5 - 5.1 mmol/L) Cancelled 3.7 Chloride (98 - 107 mmol/L) Cancelled 108 H Carbon Dioxide (22 - 30 mmol/L) Cancelled 19 L Anion Gap (5 - 16) Cancelled 10 BUN (7 - 17 mg/dL) Cancelled 18 H Creatinine (0.5 - 1.0 mg/dL) Cancelled 0.8 Estimated GFR (>60 ml/min) > 60 BUN/Creatinine Ratio (7 - 25 %) Cancelled 22.5 Glucose (65 - 99 mg/dL) 145 H Lactic Acid Cancelled Calcium (8.4 - 10.2 mg/dL) 7.9 L Magnesium (1.6 - 2.3 mg/dL) 1.3 L Troponin I (< 0.11 ng/ml) Cancelled < 0.01 Hematology CBC w Diff NO MAN DIFF REQ WBC (4.8 - 10.8 /CUMM) 9.1 RBC (4.20 - 5.40 /CUMM) 4.22 Hgb (12.0 - 16.0 G/DL) 13.0 Hct (37 - 47 %) 38.4 MCV (81.0 - 99.0 FL) 91.0 MCH (27.0 - 31.0 PG) 30.8 RDW (11.5 - 14.5 %) 15.3 H Plt Count (130 - 400 /CUMM) Gran % (42.2 - 75.2 %) 79.6 H Lymphocytes % (20.5 - 51.1 %) 14.9 L Monocytes % (1.7 - 9.3 %) 5.3 Eosinophils % (0 - 5 %) 0.1 Basophils % (0.0 - 2.0 %) 0.1 Absolute Granulocytes (1.4 - 6.5 /CUMM) 7.3 H Absolute Lymphocytes (1.2 - 3.4 /CUMM) 1.4 Absolute Monocytes (0.10 - 0.60 /CUMM) 0.5 Absolute Eosinophils (0.0 - 0.7 /CUMM) 0 Absolute Basophils (0.0 - 0.2 /CUMM) 0 PUBS MCHC (33.0 - 37.0 G/DL) 33.8 05/18 05/18 2330 2308 Hematology CBC w Diff NO MAN DIFF REQ WBC (4.8 - 10.8 /CUMM) 12.1 H RBC (4.20 - 5.40 /CUMM) 4.64 Hgb (12.0 - 16.0 G/DL) 14.3 Hct (37 - 47 %) 41.9 MCV (81.0 - 99.0 FL) 90.4 MCH (27.0 - 31.0 PG) 30.9 RDW (11.5 - 14.5 %) 15.5 H Plt Count (130 - 400 /CUMM) 221 MPV (7.4 - 10.4 FL) 10.6 H Gran % (42.2 - 75.2 %) 88.6 H Lymphocytes % (20.5 - 51.1 %) 8.9 L Monocytes % (1.7 - 9.3 %) 2.1 Eosinophils % (0 - 5 %) 0.3 Basophils % (0.0 - 2.0 %) 0.1 Absolute Granulocytes (1.4 - 6.5 /CUMM) 10.7 H Absolute Lymphocytes (1.2 - 3.4 /CUMM) 1.1 L Absolute Monocytes (0.10 - 0.60 /CUMM) 0.3 Absolute Eosinophils (0.0 - 0.7 /CUMM) 0 Absolute Basophils (0.0 - 0.2 /CUMM) 0 PUBS MCHC (33.0 - 37.0 G/DL) 34.1 Toxicology Urine Opiates Screen (>2000 NG/ML) < 100.00 Methadone Screen (>300 NG/ML) < 40 Barbiturate Screen (>200 NG/ML) < 60 Ur Phencyclidine Scrn (>25 NG/ML) < 6.00 Amphetamines Screen (>1000 NG/ML) < 100 U Benzodiazepines Scrn (>200 NG/ML) < 85 Urine Cocaine Screen (>300 NG/ML) < 50 Urine Cannabis Screen (>50 NG/ML) < 5.00 Urines Urine Color (YEL,AMB,STR) YEL Urine Clarity (CLEAR) CLEAR Urine pH (5.0 - 8.0) 6.0 Ur Specific [place] (1.001 - 1.035) 1.025 Urine Protein (NEG,<30 MG/DL) NEG Urine Ketones (NEG) >=80 Urine Nitrite (NEG) NEG Urine Bilirubin (NEG) NEG@ICTO Urine Urobilinogen (0.1 - 1.0 EU/dl) 0.2 Ur Leukocyte Esterase (NEG) NEG Ur Microscopic EXAM NOT REQUIRED Urine Hemoglobin (NEG) NEG Urine Glucose (N MG/DL) >=1000 H Urine Test NEGATIVE 05/19 2147 Chemistry Sodium (137 - 145 mmol/L) 137 Potassium (3.5 - 5.1 mmol/L) 3.3 L Chloride (98 - 107 mmol/L) 104 Carbon Dioxide (22 - 30 mmol/L) 13 L Anion Gap (5 - 16) 19 H BUN (7 - 17 mg/dL) 19 H Creatinine (0.5 - 1.0 mg/dL) 0.9 Estimated GFR (>60 ml/min) > 60 BUN/Creatinine Ratio (7 - 25 %) 21.1 Glucose (65 - 99 mg/dL) 377 H Lactic Acid (0.7 - 2.1 mmol/L) 1.2 Calcium (8.4 - 10.2 mg/dL) 8.5 Magnesium (1.6 - 2.3 mg/dL) 1.3 L Total Bilirubin (0.2 - 1.3 mg/dL) 0.8 AST (14 - 36 U/L) 17 ALT (9 - 52 U/L) 29 Alkaline Phosphatase (<127 U/L) 93 Troponin I (< 0.11 ng/ml) < 0.01 Total Protein (6.3 - 8.2 g/dL) 6.5 Albumin (3.5 - 5.0 g/dL) 3.6 Globulin (1.9 - 4.2 gm/dL) 2.9 Albumin/Globulin Ratio (1.1 - 2.2 %) 1.2 Amylase (30 - 110 U/L) < 30 L Lipase (23 - 300 U/L) 18 L Toxicology Acetone Level (NEGATIVE) POSITIVE AT 1:16 DIL Assessment/Plan Assessment/Plan Suggest begin Levemir 25 units twice a day patient feels that the vomiting is over and that she may be able to eat breakfast. Would also begin sliding scale NovoLog before meals sliding scale NovoLog before meals should be 80-150 give 6 units NovoLog, 151-200 give 8 units NovoLog, 2 or 1-250 give 10 units NovoLog, 251-300 give 12 units NovoLog, 301-350 give 14 units NovoLog, 351-400 give 16 units NovoLog. A separate bedtime started scale NovoLog should be written. Bedtime sinus scale NovoLog less than 250 give no insulin, 251-300 give 3 units NovoLog, 301-350 give 4 units NovoLog, 351-400 give 5 units NovoLog. Continue to hydrate the patient with normal saline with 20 mEq KCl at 1 25 mL per hour. When she is eating and drinking well the IV fluids can be discontinued. We should repeat her blood work again at noontime today. Consult Acknowledgment - Thank you for your consult request.
--- NOTE | 2016-05-19 08:16 | NUR ---
HOUSE STAFF TO GEENA.
--- NOTE | 2016-05-19 08:36 | NUR ---
LABS DRAWN, SENT TO LAB. AWAITING FOR FLUIDS TO FINISH INFUSING STILL BEFORE POTASSIUM INFUSION TOLD FROM [facility] THAT HOUSE STAFF REQUESTED.
--- NOTE | 2016-05-19 09:17 | NUR ---
MEDICATED WITH LEVEMIR (SEE MAR)
--- NOTE | 2016-05-19 09:17 | NUR ---
RESIDENT AL AWARE OF POTASSIUM INFUSION ON HOLD TO FINISH WITH NS INFUSION.
--- NOTE | 2016-05-19 10:33 | NUR ---
PT HAS BED ASSIGNMENT 208-1. RN NOTIFIED.
--- NOTE | 2016-05-19 11:12 | NUR ---
PT PREFERS TO STAY IN OWN CLOTHES UNTIL TRANSFERED UPSTAIRS. PT EDUCATED ON IMPORTANCE OF CHANGING FOR FULL ASSESSMENT.
--- NOTE | 2016-05-19 11:30 | NUR ---
REPORT GIVEN TO NAPOLEON PUENTE BY NAPOLEON PACHECO. PER FLOOR BED IS NOT READY AT THIS TIME.
--- NOTE | 2016-05-19 11:42 | PN- Att Addend ---
Attending MD Review Statement Attending Statement Attending MD Statement: examined this patient, discuss w/resident/PA/CHILDR[employer] CARETAKER, agreed w/resident/PA/CHILDREN[employer] CARETAKER, reviewed EMR data (avail), discussed w/nursing Attending Assessment/Plan: Laboratory Tests 05/19/16 0834: Anion Gap 12, Estimated GFR > 60, BUN/Creatinine Ratio 22.5 05/19/16 0445: Sodium Cancelled, Potassium Cancelled, Chloride Cancelled, Carbon Dioxide Cancelled, Anion Gap Cancelled, BUN Cancelled, Creatinine Cancelled, BUN/ Creatinine Ratio Cancelled, Troponin I Cancelled, CBC w Diff NO MAN DIFF REQ, RBC 4.22, MCV 91.0, MCH 30.8, RDW 15.3 H, Gran % 79.6 H, Lymphocytes % 14.9 L , Monocytes % 5.3, Eosinophils % 0.1, Basophils % 0.1, Absolute Granulocytes 7.3 H, Absolute Lymphocytes 1.4, Absolute Monocytes 0.5, Absolute Eosinophils 0, Absolute Basophils 0, PUBS MCHC 33.8 05/19/16 0427: Anion Gap 10, Estimated GFR > 60, BUN/Creatinine Ratio 22.5, Glucose 145 H, Calcium 7.9 L, Magnesium 1.3 L, Troponin I < 0.01 05/19/16 0010: Lactic Acid Cancelled 05/18/16 2330: CBC w Diff NO MAN DIFF REQ, RBC 4.64, MCV 90.4, MCH 30.9, RDW 15.5 H, MPV 10.6 H, Gran % 88.6 H, Lymphocytes % 8.9 L, Monocytes % 2.1, Eosinophils % 0.3, Basophils % 0.1, Absolute Granulocytes 10.7 H, Absolute Lymphocytes 1.1 L, Absolute Monocytes 0.3, Absolute Eosinophils 0, Absolute Basophils 0, PUBS MCHC 34.1 05/18/16 2308: Urine Opiates Screen < 100.00, Methadone Screen < 40, Barbiturate Screen < 60, Ur Phencyclidine Scrn < 6.00, Amphetamines Screen < 100, U Benzodiazepines Scrn < 85, Urine Cocaine Screen < 50, Urine Cannabis Screen < 5.00, Urine Color YEL, Urine Clarity CLEAR, Urine pH 6.0, Ur Specific [place] 1.025, Urine Protein NEG, Urine Ketones >=80, Urine Nitrite NEG, Urine Bilirubin NEG@ICTO, Urine Urobilinogen 0.2, Ur Leukocyte Esterase NEG, Ur Microscopic EXAM NOT REQUIRED, Urine Hemoglobin NEG, Urine Glucose >=1000 H, Urine Test NEGATIVE 05/18/168: Anion Gap 19 H, Estimated GFR > 60, BUN/Creatinine Ratio 21.1, Glucose 377 H, Lactic Acid 1.2, Calcium 8.5, Magnesium 1.3 L, Total Bilirubin 0.8, AST 17, ALT 29, Alkaline Phosphatase 93, Troponin I < 0.01, Total Protein 6.5, Albumin 3.6, Globulin 2.9, Albumin/Globulin Ratio 1.2, Amylase < 30 L, Lipase 18 L, Acetone Level POSITIVE AT 1:16 DIL Vital Signs Date Time Temp Pulse Resp B/P Pulse O2 O2 Flow FiO2 Ox Delivery Rate 05/19 0950 97.8 105 18 116/55 98 05/19 0439 99.1 118 18 95 Room Air 05/19 0344 99.6 115 20 103/52 93 Room Air 05/19 0217 99.5 107 20 117/53 96 Room Air 05/19 0019 98.8 118 18 112/61 98 Room Air 05/18 2046 98.3 103 22 144/79 98 DKA- anion gap closed. cont with iv fluids for now and repeat BMP at noon time. Pt has been on insulin pump at home for last 2 months and was doing ok. Seen by endocrine and appreciate their input. Started on levemir 25 Units SC bid and novolog SSI. pt was using about 70-80 units of novolog through insulin pump over a day. d/w pt the care plan.
--- NOTE | 2016-05-19 11:45 | NUR ---
[facility] CALLED FOR PT TRANSPORT.
[2016-05-19 12:43] VITALS: BP 112/60
--- NOTE | 2016-05-19 13:54 | NUR ---
LATE ENTRY: 13:27 ON 05/19/16: PATIENT CAME UP FROM THE ER. ALERT AND ORIENTED X3. DENIES PAIN AT THIS TIME. PATIENT ORIENTED TO STAFF AND CALL PERALTA. PATIENT'S BELONGINGS WITH HER WHICH INCLUDE INSULIN PUMP. 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 PATIENT VERBALZIED AND IN AGREEMENT WITH ADMISSION INSTRUCTIONS. NO FURTHER QUESTIONS. PATIENT PLANS TO MAKE MOM CAREGIVER WHO IS NOT HERE YET. PT EDUCATED ON CAREPARTNER PROGRAM AND IS INTERESTED TO MAKE MOM CAREPARTNER WHEN SHE IS HERE. PT WILL LET STAFF KNOW AT THAT TIME SO THAT CAREPARTNER PACKAGE CAN BE GIVEN. OTHERWISE, OFFERS NO COMPLAINTS AT THIS TIME. LUNCH PROVIDED.
--- NOTE | 2016-05-19 21:13 | Patient Discharge Instructions ---
Discharge Instructions General Discharge Information You were seen/treated for: Diabetic ketoacidosis. Viral gastroenteritis Watch for these problems: Recurrence of nausea, vomiting, abdominal pain or diarrhea. Fevers or chills. Special Instructions: Please take all medications as directed. Please follow-up with your PCP and beta tester within 1 week after discharge. Please have your insulin pump checked Arlene next follow-up appointment. Diet Recommended Diet: Diabetic Activity Full Activity/No Limits: Yes Acute Coronary Syndrome Inclusion Criteria At DC or during hospital stay patient has or had the following: ACS DIAGNOSIS No Discharge Core Measures Meds if any: Prescribed or Continued at Discharge Meds if any: NOT Prescribed or Continued at Discharge Congestive Heart Failure Inclusion Criteria At DC or during hospital stay patient has or had the following: CHF DIAGNOSIS No Discharge Core Measures Meds if any: Prescribed or Continued at Discharge Meds if any: NOT Prescribed or Continued at Discharge Cerebrovascular accident Inclusion Criteria At DC or during hospital stay patient has or had the following: CVA/TIA Diagnosis No Discharge Core Measures Meds if any: Prescribed or Continued at Discharge Meds if any: NOT Prescribed or Continued at Discharge Venous thromboembolism Inclusion Criteria VTE Diagnosis No VTE Type NONE VTE Confirmed by (Test) NONE Discharge Core Measures - Per Current guidelines, there needs to be overlap - treatment for the first 5 days of Warfarin therapy. - If discharged on Warfarin prior to 5 days of - overlap therapy, the patient will need to be - assessed for post discharge needs including - *Post discharge parental anticoagulation - *Warfarin and/or parental anticoagulation education - *Follow up date to check INR post discharge At least 5 days overlap therapy as Inpatient No Meds if any: Prescribed or Continued at Discharge Note: Overlap Therapy is Warfarin and Anticoagulant Meds if any: NOT Prescribed or Continued at Discharge
[2016-05-19 22:35] VITALS: BP 118/64
[2016-05-20 06:22] VITALS: BP 114/64
--- NOTE | 2016-05-20 07:10 | PN- Housestaff ---
See Addendum Subjective Follow-up For: nausea and vomiting -resolved DKA-resolved Subjective: I saw and examined the patient this morning, she is siting in bed and eating breakfast. She is in no distress, denies any N/V, abdominal pain, dizziness or headache. She would liketo go home. Review of Systems Constitutional: Denies: chills, fever, weakness. EENTM: Reports: no symptoms. Cardiovascular: Denies: chest pain, palpitations. Respiratory: Reports: no symptoms. Gastrointestinal: Denies: abdominal pain, nausea, vomiting. Genitourinary: Reports: no symptoms. Musculoskeletal: Reports: no symptoms. Skin: Reports: no symptoms. Neurological/Psychological: Reports: no symptoms. Hematologic/Endocrine: Reports: no symptoms. Objective Last 24 Hrs of Vital Signs/I&O Vital Signs Date Time Temp Pulse Resp B/P Pulse O2 O2 Flow FiO2 Ox Delivery Rate 05/20 0622 98.3 80 19 114/64 97 Room Air 05/19 2235 98.7 92 18 118/64 96 05/19 1243 98.2 92 20 112/60 98 Room Air 05/19 0950 97.8 105 18 116/55 98 Intake & Output 05/20 1600 05/20 0800 05/20 0000 Intake Total 1600 475 Output Total Balance 1600 475 Intake, IV 1000 375 Intake, Oral 600 100 Physical Exam General Appearance: Alert, Oriented X3, Cooperative, No Acute Distress Skin: No Breakdown, No Significant Lesion HEENT: Atraumatic, EOMI Neck: Supple, No JVD Cardiovascular: Normal S1, Normal S2, No Murmurs Lungs: Clear to Auscultation, Normal Air Movement Abdomen: Soft, No Tenderness Neurological: Normal Speech, Strength at 5/5 X4 Ext, Normal Tone Extremities: No Edema, Normal Pulses Vascular: Pulses Symmetrical Current Medications: Current Medications Sig/Lauro Start time Last Medication Dose Route Stop Time Status Admin Acetaminophen 650 MG Q6P PRN 05/19 0115 AC PO Aspirin 81 MG DAILY 05/19 1000 AC PO Enoxaparin Sodium 40 MG DAILY 05/19 1000 AC SC Insulin Aspart 0 TIDAC 05/19 0800 AC 05/20 SC 0838 Insulin Detemir 25 UNITS BID 05/19 2200 DC 05/19 SC 2304 Levothyroxine Sodium 0.125 MG DAILY AC 05/19 0700 AC 05/20 PO 0539 Magnesium Oxide 400 MG ONE ONE 05/19 1929 DC 05/19 PO 05/19 Ondansetron HCl 4 MG Q6P PRN 05/19 0200 AC IV Potassium Chloride 20 MEQ Q8H 05/19 06 AC 05/20 Sodium Chloride 1,000 ML IV 0308 Rosuvastatin Calcium 10 MG DAILY 05/19 1000 AC PO Last 24 Hrs of Lab/Bryan Results Last 24 Hrs of Labs/Mics: Laboratory Tests 05/20/16 0630: Anion Gap 9, Estimated GFR > 60, BUN/Creatinine Ratio 20.0, CBC w Diff NO MAN DIFF REQ, RBC 3.90 L, MCV 89.8, MCH 30.9, RDW 15.5 H, MPV 10.9 H, Gran % 72.2 , Lymphocytes % 23.0, Monocytes % 2.9, Eosinophils % 1.5, Basophils % 0.4, Absolute Granulocytes 6.9 H, Absolute Lymphocytes 2.2, Absolute Monocytes 0.3, Absolute Eosinophils 0.1, Absolute Basophils 0, PUBS MCHC 34.4 05/19/16 1707: Anion Gap 10, Estimated GFR > 60, BUN/Creatinine Ratio 24.3, Calcium 7.9 L, Magnesium 1.6 Assessment/Plan Assessment: 31 year old woman with multiple medical problems significant for insulin dependent diabetes mellitus and myocardial infarction seen for evaluation of nausea, vomiting, and diarrhea. Given patients reported history of multiple family members having similar gastrointestinal complaints and negative history for any recent travel, consumption of undercooked meat, or recent antibiotic use it is likely patient is suffering from an acute viral gastroenteritis. Patient objectively also qualifies for diabetic ketoacidosis most likely secondary to her acute viral illness with her decreased oral intake, dehydration, elevated blood sugar, low bicarbonate, and positive acetone. Patient declining ABG at this time. Patient will be admitted to the intensive care unit for further evaluation. Diabetic Ketoacidosis - resolved Extensive history of insulin dependent diabetes mellitus. Uses insulin pump at home and reports compliance. 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 Most likely secondary to her acute viral illness. -per endo recommendations held levemir dose in am and started her back on her insulin pump. Viral Gastroenteritis -resolved -Intravenous Fluid rehydration-discontinued patient denies N/V and is eating and drinking well. -Zofran 4mg IV Q6H PRN - Nausea History of Myocardial Infarction s/p Stent Patient of Dr. Coe. Reportedly had AK in 2011 resulting in placement of a reported bare-metal stent. Reported allergy to plavix and lipitor. EKG demonstrated new t-wave inversions in precordial leads on admission. -Aspirin 81mg PO Daily -Crestor 40mg PO Daily -Troponin (-)x2 /EKG unremarkable Hypothyroidism - levothyroxine 125mg PO Daily Diet - NPO, advance to clears as tolerated DVT PPx - heparin Code Status - Full Code Problem List: 1. Diabetes mellitus type 1 2. Diabetic ketoacidosis 3. Gastroenteritis Pain Ratin Pain Location: no pain Pain Goal: Pain 4 or less Pain Plan: mild pain pathway Tomorrow's Labs & Rationales: none Consulting Request: Consulting Specialty: Endocrinology
--- NOTE | 2016-05-20 07:41 | PN- Diabetes ---
Assessment/Plan Assessment: She feels much better this morning. She is eating and drinking. There is no further vomiting. Blood sugars yesterday by fingerstick were 243, 209, and 188. Her ketoacidosis is resolved. Plan: Suggest that the patient can be discharged home today. She can resume the insulin pump right before she leaves the hospital. If she leaves this morning we can hold the morning Levemir and just have her restart the pump. Subjective Subjective: Feels okay Review of Systems Constitutional: Denies: chills, fever. Cardiovascular: Denies: chest pain. Respiratory: Denies: short of breath. Gastrointestinal: Denies: abdominal pain, nausea, vomiting. Skin: Reports: no symptoms. Objective Last 24 Hrs of Vital Signs/I&O Vital Signs Date Time Temp Pulse Resp B/P Pulse O2 O2 Flow FiO2 Ox Delivery Rate 05/20 0622 98.3 80 19 114/64 97 Room Air 05/19 2235 98.7 92 18 118/64 96 05/19 1243 98.2 92 20 112/60 98 Room Air 05/19 0950 97.8 105 18 116/55 98 Intake & Output 05/20 0800 05/20 0000 05/19 1600 Intake Total 4705 316 8691 Output Total Balance 1832 813 0633 Intake, IV 1000 375 Intake, Oral 374 580 0614 Patient 306 lb Weight Vital Signs Date Time Temp Pulse Resp B/P Pulse O2 O2 Flow FiO2 Ox Delivery Rate 05/20 0622 98.3 80 19 114/64 97 Room Air 05/19 2235 98.7 92 18 118/64 96 / 1243 98.2 92 20 112/60 98 Room Air 05/19 0950 97.8 105 18 116/55 98 Intake & Output 05/20 0800 05/20 0000 05/19 1600 Intake Total 6122 712 5717 Output Total Balance 1300 677 8335 Intake, IV 1000 375 Intake, Oral 535 512 7032 Patient 306 lb Weight Physical Exam General Appearance: alert, awake, comfortable Head: normal appearance Neck: normal inspection Cardiovascular: regular rate/rhythm Abdomen: normal bowel sounds, soft Extremities: normal inspection Current Medications: Current Medications Sig/Lauro Start time Last Medication Dose Route Stop Time Status Admin Acetaminophen 650 MG Q6P PRN 05/19 0115 AC PO Aspirin 81 MG DAILY 05/19 1000 AC PO Enoxaparin Sodium 40 MG DAILY 05/19 1000 AC SC Insulin Aspart 0 TIDAC 05/19 0800 AC 05/19 SC 1651 Insulin Detemir 25 UNITS BID 05/19 2200 AC 05/19 SC 2304 Insulin Detemir 10 UNITS ONCE ONE 05/19 0900 DC 05/19 SC 05/19 0901 0916 Levothyroxine Sodium 0.125 MG DAILY AC 05/19 0700 AC 05/20 PO 0539 Magnesium Oxide 400 MG ONE ONE 05/19 1930 DC 05/19 PO 05/19 193 2000 Ondansetron HCl 4 MG Q6P PRN 05/19 0200 AC IV Potassium Chloride 20 MEQ Q8H 05/19 0600 AC 05/20 Sodium Chloride 1,000 ML IV 0308 Rosuvastatin Calcium 10 MG DAILY 05/19 1000 AC PO Findings Pertinent Lab/Bryan Results: Laboratory Tests 05/20/16 0630: Anion Gap 9, Estimated GFR > 60, BUN/Creatinine Ratio 20.0, CBC w Diff Pending, WBC Pending, RBC Pending, Hgb Pending, Hct Pending, MCV Pending, MCH Pending, RDW Pending, Plt Count Pending, MPV Pending, PUBS MCHC Pending 05/19/16 1707: Anion Gap 10, Estimated GFR > 60, BUN/Creatinine Ratio 24.3, Calcium 7.9 L, Magnesium 1.6 05/19/16 0834: Anion Gap 12, Estimated GFR > 60, BUN/Creatinine Ratio 22.5
[2016-05-20 08:26] LABS: ABSOLUTE BASOPHIL COUNT 0 /CUMM (0.0-0.2); ABSOLUTE EOSINOPHIL COUNT 0.1 /CUMM (0.0-0.7); ABSOLUTE GRANULOCYTE CT 6.9 /CUMM (1.4-6.5); ABSOLUTE LYMPH COUNT 2.2 /CUMM (1.2-3.4); ABSOLUTE MONOCYTE COUNT 0.3 /CUMM (0.10-0.60); BASOPHIL % 0.4 % (0.0-2.0); EOSINOPHIL % 1.5 % (0-5); GRANULOCYTE % 72.2 % (42.2-75.2); HEMATOCRIT 35.1 % (37-47); MEAN CORPUSCULAR HGB 30.9 PG (27.0-31.0); MEAN CORPUSCULAR HGB CONC 34.4 G/DL (33.0-37.0); MEAN CORPUSCULAR VOLUME 89.8 FL (81.0-99.0); MEAN PLATELET VOLUME 10.9 FL (7.4-10.4); PLATELET COUNT 181 /CUMM (130-400); RBC DISTRIBUTION WIDTH 15.5 % (11.5-14.5); WHITE BLOOD CELL COUNT 9.6 /CUMM (4.8-10.8)
--- NOTE | 2016-05-20 17:55 | Discharge Summary ---
Visit Information Visit Dates Admission Date: 05/19/16 Discharge Date: 05/20/16 Hospital Course Course Attending Physician: KWADWO ZUNIGA MD Primary Care Physician: MADDIE ELAM MD Consulting Request: Consulting Specialty: Endocrinology Hospital Course: 31 year old woman with PMH of insulin dependent diabetes mellitus and myocardial infarction came to the ED for evaluation of elevated blood sugar, nausea, vomiting and diarrhea. In the ED she was found to have elevated BS of 392 with an increased AG 19, she also had low bicarbonate, and positive acetone. Patient was admitted with DKA, possibly precipitated by gastroenteritis, decreased oral intake and dehydration. Of note, a number of family members also reported similar GI symptoms, suggesting a viral etiology for the GI symptoms. Diabetic Ketoacidosis Extensive history of insulin dependent diabetes mellitus. Uses insulin pump at home and reports compliance. 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 Most likely secondary to her acute viral illness. Patient reported BS of >400 at home, no dizziness or headache, reported nausea in the setting of a recent gastroenteritis. She was found to have blood sugar of 392 with an increased anion gap of 19, K of 3.3 and HCO3 of 13 in the ED. No changes in mental status. Patient received 10 units of SC Novolin insulin in the ED, she was then started on insulin drip and D5 NS with KCL. A repeat BEP four hours later showed normalized AG of 10 and Bicarbonate of 19. Patient was started on Novolog insulin sliding scale as well as levemir 25 units BID and normal saline with 20 mEq KCl at 25 mL per hour. Patient was started on diet and blood sugars remained in the range of 180-250 on the day of discharge. HCO3 20, AG 9. She remained symptoms free with adequate oral intake. IV fluids and insulin sliding scale and levemir were discontinued in the morning of discharge and patient started using her insulin pump. Viral Gastroenteritis Patient was made NPO, received IV fluids and Zofran 4mg IV Q6H PRN. N/V improved and she was started on diabetic diet. History of Myocardial Infarction s/p Stent Patient of Dr. oCe. Reportedly had AK in 2011 resulting in placement of a reported bare-metal stent. Reported allergy to plavix and lipitor. EKG showed T- wave inversions in lateral leads. Troponin (-)x2. Continued Aspirin 81mg PO Daily, Crestor 40mg PO Daily. Hypothyroidism - continued levothyroxine 125mg PO Daily DVT PPx - heparin Code Status - Full Code Allergies: Coded Allergies: clopidogrel (From PLAVIX) (Mild, RASH 03/07/16) Penicillins (FAMILIAL ALLERGY HX 03/07/16) atorvastatin (From LIPITOR) (Intermediate, UNKNOWN 05/19/16) muscle pain Uncoded Allergies: MOUTHWASH (Severe, TONGUE SWELLING - AIM MOUTHWASH 03/07/16) Pertinent Lab Results: 05/20/16 0630: Anion Gap 9, Estimated GFR > 60, BUN/Creatinine Ratio 20.0, CBC w Diff NO MAN DIFF REQ, RBC 3.90 L, MCV 89.8, MCH 30.9, RDW 15.5 H, MPV 10.9 H, Gran % 72.2 , Lymphocytes % 23.0, Monocytes % 2.9, Eosinophils % 1.5, Basophils % 0.4, Absolute Granulocytes 6.9 H, Absolute Lymphocytes 2.2, Absolute Monocytes 0.3, Absolute Eosinophils 0.1, Absolute Basophils 0, PUBS MCHC 34.4 05/19/16 1707: Anion Gap 10, Estimated GFR > 60, BUN/Creatinine Ratio 24.3, Calcium 7.9 L, Magnesium 1.6 05/19/16 0834: Anion Gap 12, Estimated GFR > 60, BUN/Creatinine Ratio 22.5 05/19/16 0445: Sodium Cancelled, Potassium Cancelled, Chloride Cancelled, Carbon Dioxide Cancelled, Anion Gap Cancelled, BUN Cancelled, Creatinine Cancelled, BUN/ Creatinine Ratio Cancelled, Troponin I Cancelled, CBC w Diff NO MAN DIFF REQ, RBC 4.22, MCV 91.0, MCH 30.8, RDW 15.3 H, Gran % 79.6 H, Lymphocytes % 14.9 L , Monocytes % 5.3, Eosinophils % 0.1, Basophils % 0.1, Absolute Granulocytes 7.3 H, Absolute Lymphocytes 1.4, Absolute Monocytes 0.5, Absolute Eosinophils 0, Absolute Basophils 0, PUBS MCHC 33.8 05/19/16 0427: Anion Gap 10, Estimated GFR > 60, BUN/Creatinine Ratio 22.5, Glucose 145 H, Calcium 7.9 L, Magnesium 1.3 L, Troponin I < 0.01 05/19/16 0010: Lactic Acid Cancelled 05/18/16 2330: CBC w Diff NO MAN DIFF REQ, RBC 4.64, MCV 90.4, MCH 30.9, RDW 15.5 H, MPV 10.6 H, Gran % 88.6 H, Lymphocytes % 8.9 L, Monocytes % 2.1, Eosinophils % 0.3, Basophils % 0.1, Absolute Granulocytes 10.7 H, Absolute Lymphocytes 1.1 L, Absolute Monocytes 0.3, Absolute Eosinophils 0, Absolute Basophils 0, PUBS MCHC 34.1 05/18/16 2308: Urine Opiates Screen < 100.00, Methadone Screen < 40, Barbiturate Screen < 60, Ur Phencyclidine Scrn < 6.00, Amphetamines Screen < 100, U Benzodiazepines Scrn < 85, Urine Cocaine Screen < 50, Urine Cannabis Screen < 5.00, Urine Color YEL, Urine Clarity CLEAR, Urine pH 6.0, Ur Specific [place] 1.025, Urine Protein NEG, Urine Ketones >=80, Urine Nitrite NEG, Urine Bilirubin NEG@ICTO, Urine Urobilinogen 0.2, Ur Leukocyte Esterase NEG, Ur Microscopic EXAM NOT REQUIRED, Urine Hemoglobin NEG, Urine Glucose >=1000 H, Urine Test NEGATIVE 05/18/16 2148: Anion Gap 19 H, Estimated GFR > 60, BUN/Creatinine Ratio 21.1, Glucose 377 H, Lactic Acid 1.2, Calcium 8.5, Magnesium 1.3 L, Total Bilirubin 0.8, AST 17, ALT 29, Alkaline Phosphatase 93, Troponin I < 0.01, Total Protein 6.5, Albumin 3.6, Globulin 2.9, Albumin/Globulin Ratio 1.2, Amylase < 30 L, Lipase 18 L, Acetone Level POSITIVE AT 1:16 DIL Disposition Summary Disposition Principal Diagnosis: DKA gastroenteritis Additional Diagnosis: History of type 1 diabetes, history of AK, hypothyroidism Discharge Disposition: home or self care Discharge Instructions General Discharge Information Code Status: Full Code Patient's Diet: diabetic diet Patient's Activity: as tolerated Follow-Up Instructions/Appts: Please take all medications as directed. Please follow-up with your PCP and art appraiser within 1 week after discharge. Please have your insulin pump checked Arlene next follow-up appointment. Medications at Discharge Discharge Medications: Continue taking these medications: Aspirin (Children's Aspirin) 81 MG TAB.CHEW Comments: LAST GIVEN 05/20/16 @ 1000 Insulin Aspart (Novolog) 100 UNIT/ML VIAL Units Inject into fatty tissue BEFORE MEALS AND AT BEDTIME Comments: INSULIN PUMP Levothyroxine Sodium (Levothyroxine Sodium) 125 MCG TABLET 125 Microgram ORAL DAILY BEFORE BREAKFAST Qty = 200 Comments: PER PT VERBALLY STATED 125MCG Ibuprofen (Ibuprofen) 800 MG TABLET 1 Tablet ORAL THREE TIMES DAILY as needed for PAIN Qty = 30 Rosuvastatin Calcium (Crestor) 40 MG TABLET 1 Tablet ORAL DAILY Comments: LAST GIVEN 05/20/16 @ 1000 Copies To: MARIALUISA YUSUF,MADDIE; ISABELLA YUSUF,NILSA Fierro; JANE YUSUF,JACKI Attending MD Review Statement Documenting Attending: KWADWO ZUNIGA MD Other Findings: Agree with the above discharge plan. Pt being discharged home in stable condition. Will restart her insulin pump.
== END 2016-05-20 11:09 | DRG 420 ==
LOC: ENRESERVDT → ENRESERVTM → ENRESERV → ERH 20:42 → ENPENDDIS 05-19 00:41 → ERHI 05-19 00:41 → 2NB 05-19 00:41 → EDBEDREQ 05-19 05:54 → ERHI 05-19 06:10 → 2NB 05-19 12:06
PROVIDERS: Internal Medicine; Ophthalmology; Physician Assistant Medical; ADMIT Internal Medicine
DX: E10.10 Type 1 diabetes mellitus with ketoacidosis without coma (principal); Z79.4 Long term (current) use of insulin; I25.2 Old myocardial infarction; E03.9 Hypothyroidism, unspecified; Z87.891 Personal history of nicotine dependence; A08.4 Viral intestinal infection, unspecified; E86.0 Dehydration; E66.9 Obesity, unspecified; Z68.42 Body mass index [BMI] 45.0-49.9, adult
CPT/HCPCS: 2NBP; 36415; 80307; 81003; 81025; 82436; 93005; 93010; 96374; J1650; J1815; J3101; J3490; J7042

== ENCOUNTER → 2017-07-14 | Day surgery (SDC) | payer OTHER ==
[~2017-07-14] VITALS: Ht 165.1 cm; Wt 137.9 kg
[~2017-07-14] MED LIST changes: +BUTALB-ACETAMI1 EACH PO; -CHILDREN'S ASPI81 M1; +CHILDREN'S ASPI81 M1 PO; +CRESTOR40 M2 PO; +PERCOCET 5-3251 EACH PO; +VIBRAMYCIN100 MG PO; +ZETIA10 M1 PO
--- NOTE | 2017-07-14 14:43 | Operative Report ---
Operative/Inv Procedure Report Surgery Date: 07/14/17 Name of Procedure: 1. Laparoscopic cholecystectomy 2. Open repair reducible incisional hernia with mesh Pre-Operative Diagnosis: 1. Biliary colic 2. Incisional hernia Post-Operative Diagnosis: Same same Estimated Blood Loss: less than 50ml Surgeon/Pipeline Technician: Ross YUSUF,Darin Gracia/Kamryn RASHID Anesthesia: general endotracheal tube Implants: 6.4 cm ventral X mesh Specimens: Gallbladder Operative Indication: 32-year-old woman presents with episode of acute cholecystitis while living in [place]. She is found on examination to have recurrent umbilical hernia which was initially repaired as an infant. She'll undergo laparoscopic cholecystectomy and incisional hernia repair with possible mesh pending contamination of the case. Operative/Procedure Note Note: After informed consent patient is brought to the operating room and laid supine. General anesthesia was obtained and her abdomen was prepped and draped. The skin above the umbilicus infiltrated with local anesthesia and a curvilinear incision made sharply. We came down through the subcutaneous tissues bluntly there was a moderate sized periumbilical incisional hernia which was circumferentially dissected bluntly. The umbilical stalk was then transected with cautery. The defect was dissected down to the fascia with cautery and the fascia incised with cutting cautery to obtain clean fascial margins. Stay sutures were placed and the peritoneum was then entered sharply and a blunt Merritt port was placed. Pneumoperitoneum was achieved. 3, 5 mm ports were placed in the epigastrium and right upper quadrant after local anesthesia was instilled and under direct vision the camera. She's placed in reverse Trendelenburg and rotated towards the left. The gallbladder was difficult to identify. A dense adhesions of colon to the gallbladder which were taken down with cautery. We could visualize the dome and retracted superiorly. I then teased the duodenal adhesions off the gallbladder with blunt and cautery dissection. Infundibulum was then grasped. Adhesions to the undersurface were taken down with blunt and cautery dissection. We dissected both sides the triangle Calot peritoneal tissue with cautery. The artery was entered with cautery inadvertently. It was then clipped ligated without incident.. Liberty was cleared of areolar tissue with cautery. The duct were doubly ligated with clips. Gallbladder is removed from the fossa electrocautery. We encountered a second branch of the artery which was clipped ligated without incident. The gallbladder was placed in Endo Catch bag and cinched up. Right upper quadrant was and suction irrigated normal saline. Hemostasis achieved with cautery. There is no bile contamination or in the case. The ports were then removed and the gallbladder delivered and passed off the field. Preperitoneal planes around the incisional hernia defect were then made bluntly. A piece of Bard ventral X mesh was then placed below the defect and unraveled open. The fascia was closed over the mesh with interrupted Maxon 0 sutures. A portion of the mesh was incorporated into the closure to keep it centered. The umbilical stock was re- created 3-0 Vicryl. Skin incisions closed with 4-0 Vicryl. Steri-Strips and sterile dressing applied. Sponge and needle counts are correct. CC: Joe YUSUF,Marie
== END ==
LOC: STS 02:15
DX: K43.2 Incisional hernia without obstruction or gangrene (principal); K81.1 Chronic cholecystitis; E10.9 Type 1 diabetes mellitus without complications; Z79.4 Long term (current) use of insulin; E66.01 Morbid (severe) obesity due to excess calories; Z68.43 Body mass index [BMI] 50.0-59.9, adult; F17.200 Nicotine dependence, unspecified, uncomplicated
CPT/HCPCS: 88304; J0131; J1580; J1815; J2250; J3490